=== PATIENT | female | born 1965 | race Caucasian/White ===

== ENCOUNTER 2019-07-26 15:02 | Outpatient (CLI) | payer OTHER, SELFPAY ==
--- NOTE | 2019-07-26 15:15 | MM_ITS ---
WS: [id number] BILATERAL DIGITAL SCREENING MAMMOGRAPHY WITH CAD CLINICAL INFORMATION: SCREENING HISTORY: Screening mammogram. No current complaints. COMPARISON: June 09, 2018 TECHNIQUE: Bilateral CC and MLO views. FINDINGS: The breasts are composed of heterogeneous fibroglandular density tissue, which can limit the detectio n of small underlying mass lesions. Benign calcification right breast. No suspicious mass, asymmetry, calcifications, or architectural distortion. No evidence of malignancy. MM/[id number] IMPRESSION: BI-RADS: 2-Benign FOLLOW UP: 1 Year Follow-up Recommend return to annual screening mammography.
== END 2019-07-26 15:03 | disposition home or self-care (01) ==
PROVIDERS: Family Provider Family Medicine; PCP Family Medicine; Visit Provider Obstetrics & Gynecology
DX: Z12.31 Encounter for screening mammogram for malignant neoplasm of breast (principal)
CPT/HCPCS: 77067

== ENCOUNTER → 2020-01-26 00:01 | Outpatient (BNVA) | payer OTHER, SELFPAY | PROVIDERS: Family Provider Family Medicine; PCP Family Medicine; Visit Provider Obstetrics & Gynecology | DX: Z01.419 Encounter for gynecological examination (general) (routine) without abnormal findings (principal) | CPT/HCPCS: 82270 ==

== ENCOUNTER 2020-09-02 08:41 | Outpatient (CLI) | payer OTHER, SELFPAY ==
--- NOTE | 2020-09-02 08:50 | MM_ITS ---
WS: [id number] BILATERAL SCREENING DIGITAL MAMMOGRAM WITH CAD HISTORY: SCREENING COMPARISON: 07/26/2019 and 06/09/2018 Bilateral CC and MLO views submitted. Computer aided detection analyzed. Breast composition: The breasts are heterogeneously dense, which may obscure small masses. No suspici ous masses, microcalcifications or architectural distortion. Benign calcification in the anterior RIG HT breast. MM/[id number] IMPRESSION: BI-RADS: 2-Benign FOLLOW UP: 1 Year Follow-up
== END 2020-09-02 08:42 | disposition home or self-care (01) ==
LOC: RADSHAW 08:46
PROVIDERS: Family Provider Family Medicine; PCP Family Medicine; Visit Provider Family Medicine
DX: Z12.31 Encounter for screening mammogram for malignant neoplasm of breast (principal)
CPT/HCPCS: 77067

== ENCOUNTER → 2021-01-23 08:45 | Outpatient (BNVA) | payer OTHER, SELFPAY | PROVIDERS: Family Provider Family Medicine; PCP Family Medicine; Visit Provider Obstetrics & Gynecology | DX: R30.0 Dysuria (principal); R68.82 Decreased libido | CPT/HCPCS: 81000; 84403 ==

== ENCOUNTER → 2021-03-12 10:20 | Outpatient (BNVA) | payer OTHER, SELFPAY | PROVIDERS: Family Provider Family Medicine; PCP Family Medicine; Visit Provider Obstetrics & Gynecology | DX: R68.82 Decreased libido (principal) | CPT/HCPCS: 84403 ==

== ENCOUNTER → 2021-06-06 09:22 | Outpatient (BNVA) | payer OTHER, SELFPAY | PROVIDERS: Family Provider Family Medicine; PCP Family Medicine; Visit Provider Obstetrics & Gynecology | DX: Z12.4 Encounter for screening for malignant neoplasm of cervix (principal); R68.82 Decreased libido | CPT/HCPCS: 84403; 87624 ==

== ENCOUNTER 2021-10-03 14:32 | Outpatient (CLI) | payer OTHER, SELFPAY ==
--- NOTE | 2021-10-03 14:42 | MM_ITS ---
WS: [id number] BILATERAL 3D TOMOSYNTHESIS DIGITAL SCREENING MAMMOGRAPHY WITH CAD CLINICAL INFORMATION: SCR HISTORY: Screening mammogram. No current complaints. COMPARISON: September 02, 2020 TECHNIQUE: Bilateral CC and MLO views. FINDINGS: The breasts are composed of heterogeneous fibroglandular density tissue, which can limit the detectio n of small underlying mass lesions. Benign lucent centered calcification RIGHT breast. No suspicious mass, asymmetry, calcifications, or architectural distortion. No evidence of malignancy. MM/[place] [id number] IMPRESSION: BI-RADS: 2-Benign FOLLOW UP: 1 Year Follow-up Recommend return to annual screening mammography.
== END 2021-10-03 14:33 | disposition home or self-care (01) ==
PROVIDERS: PCP Family Medicine; Visit Provider Family Medicine
DX: Z12.31 Encounter for screening mammogram for malignant neoplasm of breast (principal)
CPT/HCPCS: 77063; 77067

== ENCOUNTER → 2021-10-10 11:12 | Outpatient (BNVA) | payer OTHER, SELFPAY | PROVIDERS: PCP Family Medicine; Visit Provider Obstetrics & Gynecology | DX: R68.82 Decreased libido (principal) | CPT/HCPCS: 84403 ==

== ENCOUNTER 2022-01-06 17:50 | Outpatient (CLI) | payer OTHER, SELFPAY ==
[2022-01-06 21:12] LABS: Testosterone Total 20.5 ng/dL (2.9-40.8)
== END 2022-01-06 17:51 | disposition home or self-care (01) ==
LOC: LAB 17:56
PROVIDERS: PCP Family Medicine; Visit Provider Obstetrics & Gynecology
DX: R68.82 Decreased libido (principal)
CPT/HCPCS: 84403

== ENCOUNTER → 2022-06-01 10:20 | Outpatient (BNVA) | payer OTHER, SELFPAY | PROVIDERS: PCP Family Medicine; Visit Provider Obstetrics & Gynecology | DX: R63.5 Abnormal weight gain (principal) | CPT/HCPCS: 84403; 84443 ==

== ENCOUNTER → 2022-09-29 13:00 | Outpatient (BNVA) | payer OTHER, SELFPAY | PROVIDERS: PCP Family Medicine; Visit Provider Obstetrics & Gynecology | DX: R68.82 Decreased libido (principal) | CPT/HCPCS: 84403 ==

== ENCOUNTER 2022-10-23 09:22 | Outpatient (CLI) | payer OTHER, SELFPAY ==
--- NOTE | 2022-10-23 09:31 | MM_ITS ---
WS: [id number] Bilateral screening 3D tomosynthesis digital mammogram, 10/23/2022 Clinical Data: SCREENING Comparison: 10/03/2021, 09/02/2020, 07/26/2019, 06/09/2018, 05/04/2017, 12/24/2015, 12/20/2014, 12/18/2013, , 11/09/2011, 10/31/2010, 10/25/2009, 10/19/2008. 10/19/2007. Findings: The breast parenchymal pattern shows heterogeneous density. No spiculated masses or clustered calcifi cations are seen. There are no secondary signs of carcinoma. MM/[place] [id number] Impression: 1. Negative bilateral mammogram unchanged. 2. Recommend annual screening mammograms. BIRADS: 1-Negative FOLLOW UP: 1 Year Follow-up The CAD loom checker was used.
== END 2022-10-23 09:23 | disposition home or self-care (01) ==
PROVIDERS: PCP Family Medicine; Referring Provider Obstetrics & Gynecology; Visit Provider Family Medicine
DX: Z12.31 Encounter for screening mammogram for malignant neoplasm of breast (principal)
CPT/HCPCS: 77063; 77067

== ENCOUNTER → 2023-02-01 15:07 | Outpatient (BNVA) | payer OTHER, SELFPAY | PROVIDERS: PCP Family Medicine; Visit Provider Nurse Practitioner Women's Health | DX: N95.0 Postmenopausal bleeding (principal); D25.9 Leiomyoma of uterus, unspecified | CPT/HCPCS: 76830 ==

== ENCOUNTER → 2023-02-05 10:00 | Outpatient (BNVA) | payer OTHER, SELFPAY | PROVIDERS: PCP Family Medicine; Visit Provider Nurse Practitioner Women's Health | DX: N95.0 Postmenopausal bleeding (principal) | CPT/HCPCS: 87624 ==

== ENCOUNTER → 2023-02-15 10:53 | Outpatient (BNVA) | payer OTHER, SELFPAY | PROVIDERS: PCP Family Medicine; Visit Provider Obstetrics & Gynecology | DX: R30.0 Dysuria (principal) | CPT/HCPCS: 81000 ==

== ENCOUNTER → 2023-02-16 09:22 | Outpatient (BNVA) | payer OTHER, SELFPAY | PROVIDERS: PCP Family Medicine; Visit Provider Podiatrist Foot & Ankle Surgery | DX: M79.671 Pain in right foot (principal); M79.672 Pain in left foot; M20.11 Hallux valgus (acquired), right foot; M20.42 Other hammer toe(s) (acquired), left foot | CPT/HCPCS: 73630 ==

== ENCOUNTER 2023-04-29 11:17 | Day surgery (SDC) | payer OTHER, SELFPAY ==
[2023-04-29] VITALS (10 sets, daily range): BP systolic 101–124; BP diastolic 71–92; PULSE 63–85; RESP 12–18; TEMP 36.1–36.4; O2SAT 95–100; BMI 20.8
--- NOTE | 2023-04-29 00:32 | P.HP_ITS ---
Same Day Surgery H&P Indication for Procedure/HPI DATE OF PROCEDURE: April 29, 2023 CHIEF COMPLAINT/INDICATIONFOR SURGICAL PROCEDURE: abnormal uterine bleeding PREOP DIAGNOSIS: abnormal uterine bleeding PLANNED PROCEDURE: Operation Date: 04/29/23 12:55 Proposed Procedures p Hysteroscopy, endometrial sampling, possible endometrial polypectomy 22411, N95.0,Z12.4(Not Applicable) - Wally Gilmore MD s Poss Poylpectomy(Not Applicable) - Wally Gilmore MD 58 y.o. h/o endometrial ablation began to have irregular bleeding one year ago had electronic imaging system operator exam here on February 05, 2023 found to have an endocervical polyp now scheduled for hysteroscopy, endometrial sampling, possible endometrial polypectomy; endocervical polypectomy Medications/Allergies* Home Medications Medication Instructions Recorded Confirmed Type lisinopril 5 mg tablet 5 mg PO DAILY 01/22/20 04/28/23 History loratadine 10 mg tablet (Claritin) 10 mg PO DAILY 01/22/20 04/28/23 History multivitamin,vq-ldyq-fihdbcah 1 tab PO DAILY 01/22/20 04/28/23 History (Complete Multivitamin tablet) diphenhydramine HCl 25 mg capsule 50 mg PO .h.s. 01/23/21 04/28/23 History (Benadryl) meloxicam 7.5 mg tablet 7.5 mg PO DAILY 01/23/21 04/28/23 History phentermine 37.5 mg capsule 37.5 mg PO DAILY 01/25/23 04/28/23 History Allergies/Adverse Reactions Allergy/AdvReac Type Severity Reaction Status Date / Time Wasp Sting Allergy Mild ADR-Itching Uncoded 03/31/23 13:15 Pertinent History/Comorbid Conditions* Medical History (Updated 02/16/23 @ 10:01 by Alec Garcia DPM) Back pain Seasonal allergies Hypertension Surgical History (Updated 02/15/23 @ 22:51 by Wally Gilmore MD) History of arthroscopic knee surgery (03/20/15) Left knee, Performed in [place], [place] at [facility]. S/P endometrial ablation (06/24/12) Hysteroscopy with hydrothermal endometrial ablation. DX: Menorrhagia. Performed by Dr. Urbano at [facility] in [place], [place] History of tonsillectomy (~1970) Family History (Updated 01/23/20 @ 10:48 by Rolando Urbano) Cancer Family/Other Great Grandmother; Colon Cancer Social History Substance/Drug Use: never Pertinent Exam Findings alert, oriented x 3, clear to auscultation bilaterally and regular rate & rhythm Recommendations Surgery/Procedure today Coding Level of Care Code Acute Code for Chg Fwd Time Spent (min) 20
[2023-04-29] MEDS: sodium chloride 0.9% 1,000 ML 30 ML IV (11:47)
[2023-04-29 13:12] LABS: Anion Gap 16.9 (5-19); Blood Urea Nitrogen 19 mg/dL (6-20); Calcium 8.6 mg/dL (8.5-10.5); Carbon Dioxide 23 mmol/L (22-29); Chloride 105 mmol/L (98-107); Glomerular Filtration Rate 85.9 mL/min (90-130); Glucose 85 mg/dL (65-115); Osmolality Calculated 294 mOsm/kg (285-295); Potassium 3.9 mmol/L (3.5-5.1); Sodium 141 mmol/L (136-145)
--- NOTE | 2023-04-29 13:14 | W.PM.OPSUD ---
Surgery/Procedure H&P Update DATE OF PROCEDURE: April 29, 2023 DATE H&P PERFORMED: 02/16/24 H&P UPDATE INFORMATION: I have reviewed H&P completed within last 30 days, I have examined patient prior to procedure and No changes to prior documentation PREOP DIAGNOSIS: heavy menstrual bleeding PLANNED PROCEDURE: Operation Date: 04/29/23 12:55 Proposed Procedures p Hysteroscopy, endometrial sampling, possible endometrial polypectomy 71010, N95.0,Z12.4(Not Applicable) - Wally Gilmore MD s Poss Poylpectomy(Not Applicable) - Wally Gilmore MD
--- NOTE | 2023-04-29 13:23 | P.ANESASSM_ITS ---
Pre-Anesthetic Assessment Height/Weight: Height 1.7 m Weight 60.328 kg Temp Pulse Resp BP Pulse Ox O2 Del Method 97.6 F 85 16 124/92 98 Room Air 04/29/23 11:41 04/29/23 11:41 04/29/23 11:41 04/29/23 11:41 04/29/23 11:41 04/29/23 11:42 Preop Diagnosis: heavy menstrual bleeding Operation Date: 04/29/23 12:55 Proposed Procedures p Hysteroscopy, endometrial sampling, possible endometrial polypectomy 95998, N95.0,Z12.4(Not Applicable) - Wally Gilmore MD s Poss Poylpectomy(Not Applicable) - Wally Gilmore MD Last intake: Intake Last Liquid Date 04/29/23 Last Liquid Time 20:00 Last Solid Date 04/28/23 Last Solid Time 20:00 Social No alcohol and No tobacco Exam alert, oriented x 3, clear to auscultation bilaterally and regular rate & rhythm Airway Submandibular: within normal limits Cervical ROM: within normal limits Mallampati: Class I Dentition: full GI None reported Anesthetic Plan ASA status: 2 Anesthesia: General Risk of > 500 ml blood loss (7ml/kg in children): No Medications/Allergies Home Medications Medication Instructions Recorded Confirmed Last Taken Type lisinopril 5 mg tablet 5 mg PO DAILY 01/22/20 04/29/23 04/29/23 History loratadine 10 mg tablet (Claritin) 10 mg PO DAILY 01/22/20 04/29/23 04/29/23 History multivitamin,ww-dsgd-ywbqryet 1 tab PO DAILY 01/22/20 04/28/23 04/28/23 History (Complete Multivitamin tablet) diphenhydramine HCl 25 mg capsule 50 mg PO .h.s. 01/23/21 04/28/23 04/27/23 History (Benadryl) meloxicam 7.5 mg tablet 7.5 mg PO DAILY 01/23/21 04/29/23 04/29/23 History phentermine 37.5 mg capsule 37.5 mg PO DAILY 01/25/23 04/28/23 04/21/23 History estradiol 0.01% (0.1 mg/gram) 0.5 g vaginal DAILY #42.5 grams 02/05/23 04/28/2324 Rx vaginal cream (Estrace) esterified 1 tab PO DAILY #30 tabs 02/15/23 04/28/23 04/14/23 Rx estrogens-methyltestosterone 0.625 mg-1.25 mg tablet medroxyprogesterone 2.5 mg tablet 2.5 mg PO DAILY #30 tabs 04/23/23 04/28/23 04/14/23 Rx Allergies Allergy/AdvReac Type Severity Reaction Status Date / Time Wasp Sting Allergy Mild ADR-Itching Uncoded 03/31/23 13:15 Current Medications Generic Name Dose Route Start Last Admin Trade Name Freq PRN Reason Stop Dose Admin Sodium Chloride 1,000 mls @ 30 mls/hr 04/29/23 11:30 04/29/23 11:47 Sodium Chloride 0.9% IV 04/30/23 11:29 30 mls/hr .Q24H DAVIS Administration PFSH Anesthesia Medical History Back pain Seasonal allergies Hypertension Surgical History History of arthroscopic knee surgery (03/20/15) Left knee, Performed in [place], [place] at [facility]. S/P endometrial ablation (06/24/12) Hysteroscopy with hydrothermal endometrial ablation. DX: Menorrhagia. [place]. Urbano [place] [facility] [place], [place] History of tonsillectomy (~1970) Family History Family/Other Cancer Great Grandmother; Colon Cancer Social History Substance/Drug Use: never Data Anesthesia 04/29/23 12:11 BMP 04/29/23 12:11 Sodium 141 Potassium 3.9 Chloride 105 Carbon Dioxide 23 BUN 19 Creatinine 0.7 Glucose 85 Calcium 8.6 Cardiac Studies: 2 No Data to Display
--- NOTE | 2023-04-29 14:45 | PM.OP ---
Operative Report Date of procedure: April 29, 2023 Pre-op diagnosis: abnormal uterine bleeding Post-op diagnosis: same Post-op findings: Endocervical polyp normal endometrial cavity No polyps / fibroids Minimal endometrial tissue Procedure done: Endocervical polypectomy Endocervical curettage hysteroscopy Curettage of uterus Implants: none Specimens removed/disposition: endocervical polyp endocervical curettings endometrial curettings Surgeon: Wally Gilmore MD Anesthesia: General Estimated blood loss (mL): 0 Complications: none Condition: stable Disposition: PACU Brief History: 58 y.o. with h/o endometrial ablation with abnormal uterine bleeding Procedure: Informed consent signed. Patient was taken to the operating room. Anesthesia was induced. Patient was placed in dorsolithotomy position, prepped and draped for hysteroscopy. A bivalve speculum was placed in the vagina. A 1 cm endocervical polyp was noted. It was removed using a polyp forcep. Endocervical curettage was done. The anterior lip of the cervix was grasped with a sharp-toothed tenaculum. The cervix was serially dilated with Hegar dilators. . A hysteroscope was placed into the endometrial cavity. The endometrial cavity was seen to be normal. There were no polyps or fibroids. There was a minimal amount of endometrial tissue. The hysteroscope was then removed. Endometrial curettage was done with a sharp curette. Endometrial tissue was sent to pathology. The sharp-toothed tenaculum was removed. There was no bleeding from the endometrial cavity or cervix. The patient was then placed supine and awakened and taken to the PACU. Postop condition: stable EBL: none Sponge and instruments counts were normal x 2 Complications: none
== END 2023-04-29 15:30 | disposition home or self-care (01) ==
PROVIDERS: PCP Family Medicine; Visit Provider Obstetrics & Gynecology
PROC: 0UJD8ZZ Inspection of Uterus and Cervix, Via Natural or Artificial Opening Endoscopic (ICD-10-PCS; CPT 58555; principal; 2023-04-29 12:55)
PROC: (CPT 58558; 2023-04-29 12:55)
DX: N93.9 Abnormal uterine and vaginal bleeding, unspecified (principal); I10 Essential (primary) hypertension
CPT/HCPCS: 58558; 80048; 88305; J1100; J2250; J2405; J2704; J3010; J7030

== ENCOUNTER 2023-11-18 15:54 | Outpatient (CLI) | payer OTHER, SELFPAY ==
--- NOTE | 2023-11-18 15:40 | MM_ITS ---
WS: [id number] VIEWS: MLO and CC views both breasts. 3D digital tomosynthesis is also included in this exam. Comparison made with prior exam of 10/19/2007, 10/19/2008, 10/25/2009, 10/31/2010, 11/09/2011, 12/08/2012, , 12/20/2014, 12/24/2015, 05/04/2017, 06/09/2018, 07/26/2019, 09/02/2020, 10/03/2021, 10/23/2022.. Findings: There was no sign of mass, architectural distortion or suspicious calcification in either breast. The breasts are extremely dense which lowers the sensitivity of mammography. MM/[id number] Impression: BI-RADS: 2-Benign finding. FOLLOW-UP: 1 Year Follow-up This mammogram was also analyzed by the Computer Aided Detection System R2 Imag e Site Reliability Engineer.
== END 2023-11-18 15:55 | disposition home or self-care (01) ==
LOC: MOBLMAM 15:54
PROVIDERS: PCP Obstetrics & Gynecology; Visit Provider Obstetrics & Gynecology
DX: Z12.31 Encounter for screening mammogram for malignant neoplasm of breast (principal); R92.333 Mammographic heterogeneous density, bilateral breasts
CPT/HCPCS: 77063; 77067

== ENCOUNTER 2025-01-04 09:53 | Outpatient (CLI) | payer OTHER, SELFPAY ==
--- NOTE | 2025-01-04 10:00 | MM_ITS ---
WS: [id number] BILATERAL SCREENING DIGITAL TOMOSYNTHESIS MAMMOGRAM WITH CAD HISTORY: SCREENING COMPARISON: 11/18/2023, 10/23/2022 and 10/03/2021 Bilateral CC and MLO views with tomosynthesis and synthetic mammography submitted. Computer aided detection analyzed. Breast composition: The breasts are heterogeneously dense, which may obscure small masses. No suspicious masses, microcalcifications or architectural distortion. Benign calcifications RIGHT breast. MM/MM scr tomosynthesis [id number] IMPRESSION: BI-RADS: 2 - Benign FOLLOW UP: 1 Year Follow-up
== END 2025-01-04 09:54 | disposition home or self-care (01) ==
PROVIDERS: PCP Nurse Practitioner Family; Visit Provider Nurse Practitioner Family
DX: Z12.31 Encounter for screening mammogram for malignant neoplasm of breast (principal); R92.333 Mammographic heterogeneous density, bilateral breasts; R92.1 Mammographic calcification found on diagnostic imaging of breast
CPT/HCPCS: 77063; 77067